=== PATIENT | female | born 1990 | race Caucasian/White ===

== ENCOUNTER 2018-10-27 09:42 | Emergency (ER) | payer BC ==
[2018-10-27 10:10] LABS: #Basophils 0.1 thou/uL (0.0-0.2); #Eosinphils 0.1 thou/uL (0.0-0.7); #Lymphocytes 2.1 thou/uL (1.20-3.40); #Monocytes 0.5 thou/uL (0.11-0.59); %Basophils 1.1 % (0.0-1.0); %Monocytes 6.5 % (0.0-10.0); %Neutrophils 64.4 % (42.0-75.0); Hemoglobin 11.8 g/dL (12.0-16.0); Mean Corpuscular HGB CONC 32.9 g/dL (32.0-36.0); Mean Corpuscular Hemoglobin 29.3 pg (27.0-31.0); Mean Corpuscular Volume 88.9 fL (78.0-98.0); Mean Platelet Volume 9.9 fL (7.4-10.4); Platelet Count 170 thou/uL (130-400); RBC Distribution Width 10.9 % (11.5-14.5); Red Blood Cell (RBC) Count 4.04 mill/uL (4.20-5.40); White Blood Cell (WBC) Count 7.7 thou/uL (4.8-10.8)
[2018-10-27 10:30] LABS: ALT (SGPT) 13 U/L (8-55); AST (SGOT) 13 U/L (5-34); Alkaline Phosphatase 34 U/L (40-150); Anion Gap 12 mmol/L (10-20); BUN (Urea Nitrogen) 8 mg/dL (7.0-18.7); Bilirubin, Total 0.4 mg/dL (0.2-1.2); CKMB 0.3 ng/mL (0-6.6); Calc. Creatinine Clearance 0 mL/min (70-130); Calcium 9.4 mg/dL (7.8-10.44); Carbon Dioxide 21 mmol/L (22-29); Chloride 107 mmol/L (98-107); Estimated GFR-MDRD Greater than 90; Globulin 2.8 g/dL (2.4-3.5); Glucose 94 mg/dL (70-105); Magnesium 1.9 mg/dL (1.6-2.6); Potassium 3.8 mmol/L (3.5-5.1); Protein, Total 6.8 g/dL (6.0-8.3); Sodium 136 mmol/L (136-145); Troponin I Less than 0.010 ng/mL (< 0.028)
[2018-10-27 11:31] LABS: Bilirubin Negative (Negative); Blood, Urine Negative (Negative); Clarity Clear (Clear); Glucose, Urine (Dipstick) Negative (Negative); Leukocyte Small (Negative); Nitrite Negative (Negative); Protein, Urine (Dipstick) Negative (Neg-Trace); Specific Gravity, Urine 1.015 (1.005-1.030); Urobilinogen 0.2 mg/dL (0.2-1.0); pH, Urine 7.5 (5.0-9.0)
[2018-10-27 11:35] LABS: Bacteria/HPF 2+ HPF (None Seen); Hyaline Casts/LPF NONE SEEN LPF (0-3 Hyaline); RBC/HPF 0-3 HPF (0-3); Squamous Epithelial 0-3 HPF (0-3); WBC/HPF 0-3 HPF (0-3)
== END 2018-10-27 14:05 | disposition home or self-care (01) ==
LOC: SCSER 09:42
DX: O99.89 Other specified diseases and conditions complicating pregnancy, childbirth and the puerperium (principal); R00.2 Palpitations; R55 Syncope and collapse; R42 Dizziness and giddiness; O99.281 Endocrine, nutritional and metabolic diseases complicating pregnancy, first trimester; D64.9 Anemia, unspecified; O99.411 Diseases of the circulatory system complicating pregnancy, first trimester; I49.3 Ventricular premature depolarization; O99.341 Other mental disorders complicating pregnancy, first trimester; F90.9 Attention-deficit hyperactivity disorder, unspecified type; Z3A.11 11 weeks gestation of pregnancy
CPT/HCPCS: 80053; 81003; 81015; 82553; 83735; 84443; 84484; 84702; 85025; 93005

== ENCOUNTER 2019-05-03 13:34 | Inpatient (IN) | payer BC ==
[2019-05-17] MEDS ORDERED: Bupivacaine/Epinephrine 0.25% 30 ML VIAL ONE (15:00)
[2019-05-17] MEDS ORDERED: Bupivacaine HCl 0.5%/Epinephrine 1:200,000/PF 30 ml Vial ONE (15:00)
[2019-05-17] MEDS ORDERED: Bupivacaine PF 0.5% 30 ML VIAL ONE (15:00)
[2019-05-17 20:25] VITALS: BMI 34.3
[2019-05-17] MEDS ORDERED: Butorphanol Tartrate 1 MG/ML VIAL SLOW IVP PRN (20:43)
[2019-05-17] MEDS ORDERED: Acetaminophen 500 MG TAB PO PRN (20:43)
[2019-05-17] MEDS ORDERED: Ondansetron PF 4 MG/2 ML Vial IVP PRN (20:43)
[2019-05-17] MEDS ORDERED: Promethazine HCl 25 MG/ML VIAL IM PRN (20:43)
[2019-05-17] MEDS: Lactated Ringer's 1,000 ML IV SCH (20:45)
[2019-05-17] MEDS ORDERED: hydrALAZINE 20 MG/ML VIAL SLOW IVP PRN (20:51)
[2019-05-17] MEDS ORDERED: HYDROcodone/Acetaminophen 5/325 mg Tablet PO PRN ×2 (21:00)
[2019-05-17] MEDS ORDERED: Ibuprofen 800 MG TAB PO PRN (21:00)
[2019-05-17] MEDS ORDERED: Misoprostol 200 MCG TAB RC PRN (21:00)
[2019-05-17] MEDS ORDERED: NS / Oxytocin 40 units/1000ml 1,000 ML IV SCH (21:00)
[2019-05-17] MEDS ORDERED: Carboprost 250 MCG/ML AMP IM PRN (21:00)
[2019-05-17] MEDS ORDERED: Methylergonovine 0.2 MG/ML VIAL IM PRN (21:00)
[2019-05-17] MEDS ORDERED: NS w/ Oxytocin 10 units 500 ML IV SCH (21:00)
[2019-05-17] MEDS ORDERED: Lidocaine 1% (PF) 30 ML VIAL SC PRN (21:00)
[2019-05-17 21:05] LABS: Hemoglobin 11.7 g/dL (12.0-16.0); Mean Corpuscular HGB CONC 34.2 g/dL (32.0-36.0); Mean Corpuscular Hemoglobin 30.3 pg (27.0-31.0); Mean Corpuscular Volume 88.5 fL (78.0-98.0); Mean Platelet Volume 9.6 fL (7.4-10.4); Platelet Count 202 thou/uL (130-400); Red Blood Cell (RBC) Count 3.88 mill/uL (4.20-5.40); White Blood Cell (WBC) Count 11.4 thou/uL (4.8-10.8)
[2019-05-17] MEDS: Misoprostol 100 MCG TAB VAG PRN (21:05)
[2019-05-17 21:54] LABS: Syphilis Antibody Nonreactive (Nonreactive); Syphilis Antibody Index 0.03 S/CO (<1.00 Non-Reactive)
[2019-05-17 23:44] LABS: HBSAg Index 0.33 S/CO (0-0.99); Hep B Surf Ag Non-Reactive S/CO (NonReactive)
[2019-05-18] MEDS: Misoprostol 100 MCG TAB VAG PRN (00:10)
[2019-05-18] MEDS ORDERED: Fentanyl 4 mcg/Bup 0.1% Cadd 100 ML ONE ×3 (03:06→17:09)
[2019-05-18] MEDS: Lactated Ringer's 1,000 ML IV SCH ×2 (03:25→07:48)
[2019-05-18] MEDS ORDERED: Lactated Ringer's 500 ML IV PRN ×2 (03:42)
[2019-05-18] MEDS ORDERED: Acetaminophen 325 MG TAB PO PRN ×2 (03:42)
[2019-05-18] MEDS ORDERED: Ondansetron PF 4 MG/2 ML Vial IVP PRN ×2 (03:42)
[2019-05-18] MEDS ORDERED: diphenhydrAMINE 50 MG/ML VIAL IVP PRN ×2 (03:42)
[2019-05-18] MEDS ORDERED: ePHEDrine/0.9% NaCl/PF SYRINGE 50 mg/10 ml SLOW IVP PRN ×2 (03:42)
[2019-05-18] MEDS ORDERED: Naloxone HCl 0.4 mg/ml Vial IVP PRN ×4 (03:42)
[2019-05-18] MEDS ORDERED: Promethazine HCl 25 MG/ML VIAL IM PRN ×2 (03:42)
[2019-05-18] MEDS: NS w/ Oxytocin 10 units 500 ML IV SCH ×2 (03:44→16:47)
[2019-05-18] MEDS ORDERED: Fentanyl 4 mcg/Bupivacaine 0.1% Cassette 100 ML EPIDURAL SCH (03:45)
[2019-05-18] MEDS ORDERED: Communication Order-Pharmacy FS SCH ×2 (03:45)
--- NOTE | 2019-05-18 07:51 | PDOC.EVN ---
Event Note - Event Note Event Note: AROM with clear fluid. SVE 5/80/-2. CTX ebvery 2-4 minutes with cytotec alone, no pitocin yet. FWB category II. Occasional lates but with good recovery. Moderate variability. Some accelerations. Continue external monitors. Epidural in place.
[2019-05-18] MEDS ORDERED: Fentanyl 100 MCG/2 ML VIAL ONE (13:04)
[2019-05-18 19:23] LABS: Actual Bicarbonate (HCO3a) 17.6 mEq/L (22-28); Base Excess (BEa) -10.9 mEq/L (-2.0 to +3.0)
[2019-05-18] MEDS ORDERED: Milk Of Magnesia 30 ML UDCUP PO PRN (20:31)
[2019-05-18] MEDS ORDERED: Benzocaine-Menthol 82.5 ML CAN TOP PRN (20:31)
[2019-05-18] MEDS ORDERED: diphenhydrAMINE 25 MG CAP PO PRN (20:31)
[2019-05-18] MEDS ORDERED: Lanolin Ointment 7 GM TUBE TOP PRN (20:31)
[2019-05-18] MEDS ORDERED: Bisacodyl 10 MG SUPP PR PRN (20:31)
[2019-05-18] MEDS ORDERED: HYDROcodone/Acetaminophen 5/325 mg Tablet PO PRN (20:31)
[2019-05-18] MEDS ORDERED: NS / Oxytocin 40 units/1000ml 1,000 ML IV SCH (20:31)
[2019-05-18] MEDS: Docusate Calcium (SURFAK) 240 MG CAP PO SCH (21:27)
[2019-05-18] MEDS: Ibuprofen 800 MG TAB PO SCH (21:27)
--- NOTE | 2019-05-19 02:01 | OP ---
DATE OF PROCEDURE: 05/18/2019 PREOPERATIVE DIAGNOSES: 1. Term intrauterine . 2. Elective induction of labor at 40 weeks. 3. bradycardia at the end of pushing. POSTOPERATIVE DIAGNOSES: 1. Term intrauterine . 2. Elective induction of labor at 40 weeks. 3. bradycardia at the end of pushing. 4. First degree perineal laceration. PROCEDURE PERFORMED: Vacuum-assisted vaginal delivery. ANESTHESIA: Epidural. QUANTITATIVE BLOOD LOSS: 129 mL. BRIEF DELIVERY SUMMARY: This is a 29-year-old G1, now P1, who presented for Cytotec induction last night. She received 2 doses of Cytotec with excellent response and she was having frequent contractions all day and making cervical change. This afternoon, her contractions spaced out and we started her on some Pitocin after which time she progressed to complete and pushing. She delivered a live male , head OA. During the last few minutes of pushing, the baby developed some bradycardia into the 80s and 90s for about 7 minutes. At that time, it was decided to go ahead and assist with vacuum assisted delivery. The vacuum was placed on the vertex. At that time, the baby was basically +4 station. Suction was taken into the yellow zone, taking care to exclude maternal tissues. With the next contraction, suction was taken into the green zone and gentle traction was applied with excellent movement of the head. In total, it took one pull on the vacuum and 25 seconds of vacuum application to effect delivery of the vertex. Shoulders and body quickly and easily followed. There was no nuchal cord. Mouth and nares were bulb suctioned shortly after delivery and the was placed on mother's abdomen. Apgars were 9 at one minute and 9 at five minutes. Cord gas was collected. Those results are not available at the time of this dictation. Cord blood was also collected and sent for analysis. Placenta delivered spontaneously and intact with a three vessel umbilical cord. The uterine fundus was firm following evacuation of the placenta with minimal bleeding. There was a first-degree perineal laceration, which was repaired in standard running fashion using 2-0 Vicryl suture under epidural anesthesia with excellent hemostasis. Mom and baby were left with the nurse in excellent condition, attempting to breastfeed. Job ID: [id number]
[2019-05-19] MEDS: Ibuprofen 800 MG TAB PO SCH ×3 (05:52→21:12)
[2019-05-19] MEDS: Ferrous Sulfate 325 MG TAB PO SCH ×2 (08:27→18:40)
[2019-05-19] MEDS: Docusate Calcium (SURFAK) 240 MG CAP PO SCH ×2 (08:27→21:12)
[2019-05-19] MEDS ORDERED: Adacel (T-DAP) 0.5 ML SYRINGE IM ONE (09:00)
--- NOTE | 2019-05-19 13:51 | PDOC.PP ---
Post Progress Note Post Day #: 1 Subjective: Doing well. No pain. Ambulating well. going OK. Working on latch. PO intake tolerated: yes Flatus: yes Ambulation: yes Vital Signs (12 hours) Temp Pulse Resp BP Pulse Ox 05/19/19 11:11 97.9 F 83 20 120/75 05/19/19 08:20 97.6 F 76 20 110/66 97 05/19/19 03:40 98.3 F 85 18 126/68 99 Weight Weight 200 lb - Physical Examination General: NAD Cardiovascular: no m/r/g, RRR Respiratory: clear to auscultation bilaterally, non-labored breathing Abdominal: + bowel sounds, lochia, no distention, appropriately TTP Result Diagrams: 05/17/19 20:55 Additional Labs: Post Labs Blood Type A POSITIVE 05/17/19 20:55 Hep Bs Antigen Non-Reactive S/CO (NonReactive) 05/17/19 20:55 (1) Vaginal delivery Code(s): O80 - ENCOUNTER FOR FULL-TERM UNCOMPLICATED DELIVERY Status: Acute - Assessment/Plan Routine PP care Work on D/C likely tomorrow.
[2019-05-20] MEDS: Ibuprofen 800 MG TAB PO SCH (04:51)
[2019-05-20 08:26] VITALS: BP 120/65; TEMP 98.6
[2019-05-20] MEDS: Ferrous Sulfate 325 MG TAB PO SCH (08:27)
[2019-05-20] MEDS: Docusate Calcium (SURFAK) 240 MG CAP PO SCH (09:15)
--- NOTE | 2019-05-20 12:22 | PDOC.PP ---
Post Progress Note Post Day #: 1 Subjective: Doing well. NO c/o. Having some trouble with latch but pumping is going well. Will see [facility] IBCLC today. PO intake tolerated: yes Flatus: yes Ambulation: yes Vital Signs (12 hours) Temp Pulse Resp BP Pulse Ox 05/20/19 09:15 98 05/20/19 08:25 98.6 F 78 20 120/65 98 05/20/19 04:00 98.1 F 78 17 118/64 Weight Weight 200 lb - Physical Examination General: NAD Cardiovascular: no m/r/g, RRR Respiratory: clear to auscultation bilaterally, non-labored breathing Abdominal: + bowel sounds, lochia, no distention, appropriately TTP Result Diagrams: 05/17/19 20:55 Additional Labs: Post Labs Blood Type A POSITIVE 05/17/19 20:55 Hep Bs Antigen Non-Reactive S/CO (NonReactive) 05/17/19 20:55 (1) Vaginal delivery Code(s): O80 - ENCOUNTER FOR FULL-TERM UNCOMPLICATED DELIVERY Status: Acute - Assessment/Plan Routine care D/C home
== END 2019-05-20 13:30 | disposition home or self-care (01) | DRG 807 ==
LOC: EDSTATUS 15:13 → L&D 05-17 19:50 → 3SW 05-18 21:14
PROVIDERS: ADMIT Family Medicine; ATTEND Family Medicine
PROC: 10D07Z6 Extraction of Products of Conception, Vacuum, Via Natural or Artificial Opening (ICD-10-PCS; principal; 2019-05-18)
PROC: 0HQ9XZZ Repair Perineum Skin, External Approach (ICD-10-PCS; 2019-05-18)
PROC: 3E033VJ Introduction of Other Hormone into Peripheral Vein, Percutaneous Approach (ICD-10-PCS; 2019-05-18)
PROC: 3E0P7VZ Introduction of Hormone into Female Reproductive, Via Natural or Artificial Opening (ICD-10-PCS; 2019-05-18)
DX: O48.0 Post-term pregnancy (principal); Z37.0 Single live birth; Z3A.40 40 weeks gestation of pregnancy; O70.0 First degree perineal laceration during delivery; Z88.2 Allergy status to sulfonamides; O76 Abnormality in fetal heart rate and rhythm complicating labor and delivery
CPT/HCPCS: 36415; 51702; 82805; 85027; 86780; 86850; 86900; 86901; 87340; J0670; J2590; J3010; S0020